=== PATIENT | female | born 1955 | race Caucasian/White ===

== ENCOUNTER 2019-02-12 14:38 | Inpatient (IN) ==
[2019-02-12 15:07] LABS: BASO# 0.02 X1000 (0.0-0.2); BASO% 0.2 % (0.0-0.8); EOS# 0.04 X1000 (0.0-0.7); EOS% 0.4 % (0.0-10.0); HEMOGLOBIN 12.2 g/dL (12.0-16.0); IMM GRAN# 0.02 X1000 (0.0-0.04); IMM GRAN% 0.2 % (0.0-0.5); LYMPH# 0.82 X1000 (1.2-3.4); LYMPH% 7.9 % (20.5-51.1); MCH 28.6 PG (27-31); MCHC 31.3 g/dL (33-37); MCV 91.5 FL (81-99); MONO# 0.21 X1000 (0.11-0.59); MPV 10.6 FL (7.4-10.4); NEUT# 9.22 X1000 (1.4-6.5); NEUT% 89.3 % (42.2-75.2); PLT 242 X1000 (130-400); RBC 4.26 XMIL (4.2-5.4); RDW 12.7 % (11.5-14.5); WBC 10.33 X1000 (4.8-10.8)
[2019-02-12 15:10] LABS: URINE SOURCE CLEAN CATCH
[2019-02-12 15:13] LABS: BILIRUBIN URINE NEGATIVE (NEGATIVE); BLOOD URINE SMALL (NEGATIVE); COLOR YELLOW; GLUCOSE URINE NEGATIVE (NEGATIVE); KETONE URINE NEGATIVE (NEGATIVE); LEUKOCYTES URINE NEGATIVE (NEGATIVE); NITRITE URINE NEGATIVE (NEGATIVE); PH URINE 5.5; PROTEIN URINE NEGATIVE (NEGATIVE); SP GRAVITY URINE 1.011; TURBIDITY URINE CLEAR (CLEAR); UROBILINOGEN URINE NORMAL (NORMAL)
[2019-02-12 15:15] LABS: UR EPITHELIAL CELLS <10 /HPF (<10); URINE BACTERIA NEGATIVE /HPF; URINE RBC <10 /HPF (<10); URINE WBC <10 /HPF (<10)
[2019-02-12 15:23] LABS: URINE SMALL ROUND CELLS TRANS PRESENT
[2019-02-12 15:36] LABS: AGAP 14; ALBUMIN 4.4 g/dL (3.5-5.0); ALKALINE PHOSPHATASE 238 U/L (32-104); AMYLASE 1195 U/L (20-200); BUN 11 mg/dL (8-22); CHLORIDE 103 mmol/L (98-107); COSMO 285; CREATININE 0.7 mg/dL (0.5-0.9); ESTIMATED GFR > 60; GLUCOSE 101 mg/dL (70-104); GOT 390 U/L (10-30); GPT 444 U/L (10-36); POTASSIUM 3.7 mmol/L (3.5-5.1); SODIUM 143 mmol/L (136-145); TCO2 26 mmol/L (25-35); TOTAL BILIRUBIN 1.19 mg/dL (0.20-1.00); TOTAL PROTEIN 6.6 g/dL (6.3-8.3)
[2019-02-12 15:58] LABS: LIPASE > 3000 U/L (13-60)
[2019-02-12] MEDS ORDERED: ZOFRAN IV ONE (16:14)
[2019-02-12] MEDS ORDERED: NS 1,000 ML IV ONE (16:14)
--- NOTE | 2019-02-12 16:18 | PROVIDER DOCUMENTATION ---
HPI-Abdominal Pain/GI Problem - General Chief Complaint: Nausea/Vomiting Stated Complaint: VOMITING Time Seen by Provider: 02/12/19 16:04 Source: patient Allergies/Adverse Reactions: Patient Allergies Allergy/AdvReac Type Severity Reaction Status Date / Time Penicillins AdvReac RASH Verified 02/12/19 14:51 Home Medications: Home Medication List Medication Instructions Recorded Confirmed Last Taken Type Omeprazole 20 mg PO DAILY 02/12/19 02/12/19 02/11/19 History Sertraline [Zoloft] 100 mg PO BID 02/12/19 02/12/19 02/11/19 History Acetaminophen [Tylenol] 650 mg PO Q6H PRN PRN tab 02/15/19 Unknown Rx Ciprofloxacin HCl [Cipro] 500 mg PO BID #14 tab 02/15/19 Unknown Rx Hydrocodone/APAP 10 mg/325 mg 1 ea PO Q4H PRN PRN #15 tab 02/15/19 Unknown Rx [[place]-10] - History of Present Illness-ABD Nature of Presenting Problems: 64 YO F pmh for GERD presents with Nausea x 1 day. Pt states her GERD started acting up on yesterday. She has not vomited yet, but has complaints of generalized abdominal pain. Abdominal Pain Onset Location: reports: generalized abdomen Pain Radiation: reports: no radiation Quality of Pain: reports: aching, pressure Severity in ED: reports: moderate Onset/Duration: reports: 24 hours ago Timing: reports: still present, getting worse Activities at Onset: reports: none Exposure to sick contacts?: No Modifying Factors: improves with: nothing Associated Symptoms: reports: constipation (light colored stools), nausea. denies: diarrhea, fever/chills, rash, syncope, vomiting, weakness Last BM: 24 hours ago Dark Stools Present?: reports: other (light colored) Rectal Bleeding: reports: none Rectal Pain: reports: none Similar Symptoms Previously?: No Recently seen or treated by another doctor?: No Review of Systems - Adult - REVIEW OF SYSTEMS - ADULT Constitutional: denies: chills, fever Eyes: reports: no symptoms reported Ears, Nose, Mouth & Throat: reports: no symptoms reported Cardiovascular: reports: no symptoms reported Respiratory: denies: cough, shortness of breath, wheezing Gastrointestinal: reports: see HPI, constipation, nausea. denies: vomiting Genitourinary: reports: dysuria. denies: flank pain, urinary retention Musculoskeletal: reports: no symptoms reported Integumentary: reports: no symptoms reported Neurological: reports: no symptoms reported Psychiatric: reports: no symptoms reported Endocrine: reports: no symptoms reported Hematologic/Lymphatic: reports: no symptoms reported Past History - Adult - PAST MEDICAL HISTORY-ADULT Review of Records: reports: Medications Reviewed, Social history reviewed & non- contributory. Major Childhood Illnesses: reports: denies history Cardiovascular: reports: denies history Respiratory: reports: denies history Gastrointestinal: reports: GERD Musculoskeletal: reports: denies history Psychiatric: reports: depression Other Conditions: reports: denies history - PRIOR SURGERIES/PROCEDURES Surgical/Procedure History: denies: recent surgery - FAMILY HISTORY Family History: gallbladder disease - SOCIAL HISTORY Smoking: quit greater than 1 year Substance Use: none/never Alcohol Use Frequency: rarely Living Situation: family Physical Exam-General - PHYSICAL EXAM-ADULT Initial Vital Signs Reviewed: Yes - CONSTITUTIONAL General Appearance: appears well, alert, no apparent distress - EYES Eyes: PERRL/EOMI, pink conjunctivae - HEAD, EARS, NOSE, MOUTH & THROAT HENMT: normocephalic/atraumatic, moist mucous membranes - NECK Neck: supple - RESPIRATORY Respiratory: lungs clear, normal breath sounds, no pleuratic chest pain, no respiratory distress, no accessory muscle use - CARDIOVASCULAR Cardiovascular: regular rate, rhythm, no edema - GASTROINTESTINAL (ABDOMEN) Abdominal Exam: guarding, tenderness. negative: distended, Lezama's sign, Rovsing's sign - MUSCULOSKELETAL Back Exam: normal inspection, no CVA tenderness, no vertebral tenderness Extremity: normal range of motion, non-tender, normal gait, normal inspection, no pedal edema - SKIN Integumentary: normal color, normal turgor, warm/dry - NEUROLOGIC Neurologic: grossly normal - PSYCHIATRIC Psych/Mental Status: normal mood/affect, oriented x 3 Progress - PLAN OF CARE/RESULTS Progress/Plan/Lab Results: Vital Signs - 8 hr 02/12/19 14:48 Temperature 98.1 F Pulse Rate 80 Respiratory Rate 16 Blood Pressure 107/64 O2 Sat by Pulse Oximetry 97 Laboratory Results - last 24 hr 02/12/19 02/12/19 02/12/19 14:50 14:55 14:55 WBC 10.33 RBC 4.26 Hgb 12.2 Hct 39.0 MCV 91.5 MCH 28.6 MCHC 31.3 L RDW Std Deviation 12.7 Plt Count 242 MPV 10.6 H Immature Gran % (Auto) 0.2 Neut % (Auto) 89.3 H Lymph % (Auto) 7.9 L [place] % (Auto) 2.0 Eos % (Auto) 0.4 Baso % (Auto) 0.2 Immature Gran # (Auto) 0.02 Neut # (Auto) 9.22 H Lymph # (Auto) 0.82 L [place] # (Auto) 0.21 Eos # (Auto) 0.04 Baso # (Auto) 0.02 Sodium 143 Potassium 3.7 Chloride 103 Carbon Dioxide 26 Anion Gap 14 BUN 11 Creatinine 0.7 Estimated GFR/1.73 m2 > 60 BUN/Creatinine Ratio 16 Glucose 101 Calculated Osmolality 285 Calcium 9.0 Total Bilirubin 1.19 H AST 390 H ALT 444 H Alkaline Phosphatase 238 H Total Protein 6.6 Albumin 4.4 Globulin 2.2 Albumin/Globulin Ratio 2.0 Amylase 1195 H Lipase > 3000 H Urine Source CLEAN CATCH Urine Color YELLOW Urine Turbidity CLEAR Urine pH 5.5 Ur Specific [place] 1.011 Urine Protein NEGATIVE Ur Glucose (Stick) NEGATIVE Ur Ketones (Stick) NEGATIVE Urine Blood SMALL A Urine Nitrite NEGATIVE Urine Bilirubin NEGATIVE Urobilinogen Dipstick NORMAL Urine Leukocytes NEGATIVE Urine WBC (Auto) <10 Urine RBC (Auto) <10 U Epithel Cells (Auto) <10 Urine Bacteria (Auto) NEGATIVE Urine Crystals Not Reportable Small Round Cells TRANS PRESENT Urine Casts Not Reportable Urine Yeast-like Cells Not Reportable Orders Category Date Time Status Saline Loc DIRECTED Care 02/12/19 14:51 Active NPO Diet 02/12/19 14:[address] ABDOMEN/PELVIS W/O CONTRAST [CT] Stat Exams 02/12/19 16:06 Ordered AMYLASE [CHEM] Stat Lab 02/12/19 14:55 Completed CBC WITH ELECTRONIC DIFF [HEME] Stat Lab 02/12/19 14:55 Completed COMPREHENSIVE METABOLIC PANEL [CHEM] Stat Lab 02/12/19 14:55 Completed LIPASE [CHEM] Stat Lab 02/12/19 14:55 Completed URINALYSIS W/POSS RFLX CULT [URINALYSIS] Stat Lab 02/12/19 14:50 Completed URINE MANUAL MICROSCOPIC [URINALYSIS] Stat Lab 02/12/19 14:50 Completed Result Diagrams: 02/15/19 04:58 02/15/19 09:05 - REASSESSMENT Reassessment #1 Status: other (labs reviewed showing elevated LFTs and lipase. Will send for CT.) - CT/MRI 1 CT Study: Abdomen, Pelvis Impression: See EMR Report (CT ABDOMEN/PELVIS W/O CONTRAST - 02/12/2019 INDICATION: nausea and vomiting COMPARISON: None FINDINGS: The lung bases are clear and the heart size is normal. There are several gallstones in the gallbladder. There is some gallbladder wall thickening. There is some indistinct edema surrounding the pancreas and gallbladder. No biliary dilation. The pancreatic head mass cannot be excluded. There is severe constipation. No bowel obstruction or inflammation. No drainable fluid collections. IMPRESSION: 1. Gallstones in the gallbladder. Gallbladder wall thickening. This may indicate cholecystitis. 2. Cannot exclude pancreatic head mass. There is inflammation about the pancreas is well which may relate to pancreatitis. Recommend a CT abdomen pelvis with oral and intravenous contrast. 3. Severe diffuse const ipation. This exam was performed using automated exposure control, adjustment of mA or kV according to patient size, and/or use of iterative reconstruction technique) - CONSULTS/PCP/HOSPITALIST Notification #1 *Consult/PCP/Hospitalist*: Dr. Mays Time Discussed: 17:45 (states to call surgery) Consult Disposition: Will see in ED, Admit #2 Consult: Dr. Gaffney- General Surgery Time Discussed: 17:55 Consult Disposition: other (will see in the morning) Departure - Departure Date of Disposition Decision: 02/12/19 Time of Disposition Decision: 17:20 DIAGNOSIS: Choledocholithiasis, Elevated lipase, Transaminitis Disposition: ADMITTED INPATIENT 09 Certified Medical Emergency: Emergent Condition: Stable - Critical Care Note This patient required my direct & personal management of CC.: No Attestation - Physician/ ANETTE Attestation Patient care was provided by Advanced Practice Provider:: No The physician spent face to face time with patient:: Yes Advanced Practice Provider documentation review:: Supervising physician onsite and consulted in the evaluation and care of this patient. The physician did have a face to face encounter with the patient.
--- NOTE | 2019-02-12 16:58 | Diag Imaging Result Doc PS360 ---
CT ABDOMEN/PELVIS W/O CONTRAST - 02/12/2019 INDICATION: nausea and vomiting COMPARISON: None FINDINGS: The lung bases are clear and the heart size is normal. There are several gallstones in the gallbladder. There is some gallbladder wall thickening. There is some indistinct edema surrounding the pancreas and gallbladder. No biliary dilation. The pancreatic head mass cannot be excluded. There is severe constipation. No bowel obstruction or inflammation. No drainable fluid collections. IMPRESSION: 1. Gallstones in the gallbladder. Gallbladder wall thickening. This may indicate cholecystitis. 2. Cannot exclude pancreatic head mass. There is inflammation about the pancreas is well which may relate to pancreatitis. Recommend a CT abdomen pelvis with oral and intravenous contrast. 3. Severe diffuse constipation. This exam was performed using automated exposure control, adjustment of mA or kV according to patient size, and/or use of iterative reconstruction technique Electronically signed by Boris Parekh 02/12/2019 4:55 PM
[2019-02-12] MEDS ORDERED: FLAGYL 500 MG/NS 500 MG/100 ML IVPB IV ONE (17:21)
[2019-02-12] MEDS ORDERED: CIPRO 400 MG/D5W 400 MG/200 ML IVPB IV ONE (18:00)
[2019-02-12] MEDS ORDERED: NS 1,000 ML IV SCH (18:00)
[2019-02-12] MEDS ORDERED: SODIUM CHLORIDE 0.9% INJ SCH ×2 (18:30→20:45)
[2019-02-12] MEDS ORDERED: PROTONIX IV SCH (18:30)
--- NOTE | 2019-02-12 19:08 | HISTORY AND PHYSICAL ---
HISTORY OF PRESENT ILLNESS: Ms. Manley who is a 64-year-old white female is admitted with vomiting, which started this morning, had epigastric pain. Ms. Manley is a known case of GERD syndrome. She initially thought it was GERD; however, the vomiting continued. Hence she came to the emergency room where she was found to have elevated liver enzymes as well as mild elevation in the lipase and amylase, and a CT scan also revealed gallbladder stones. She never had a history of gallbladder problems before. She had EGD performed by Dr. Mahoney about 1 year ago, and she was told to have a bad GERD problem. She is a patient of Dr. Byers for many years. She is taking Zoloft 100 mg b.i.d. She is also taking Prilosec 20 mg daily and has been taking psyllium seeds. She did not have any major surgery except for sinus surgery and tonsillectomy. Recently she was trying to use some Monistat and she thought that the speculum for Monistat injured her in the vagina and had some vaginal bleeding, which is clearing up. SOCIAL HISTORY: She is a nonsmoker, does not drink. ALLERGIES: She is allergic to penicillin. REVIEW OF SYSTEMS: Other than vomiting and abdominal pain, she has some constipation. Otherwise, it is noncontributory. She is very weak because of recurrent vomiting. PHYSICAL EXAMINATION: VITAL SIGNS: Temperature normal, pulse 80 per minute, respiratory rate 16 per minute, blood pressure 107/64. HEAD: Normocephalic. EYES: Pupils PERRLA. Fundus exam not done. NECK: Supple. JVP normal. ENT EXAMINATION: Unremarkable. There is no evidence of lymphadenopathy, thyroid enlargement, pedal edema, calf tenderness, anemia, cyanosis or clubbing. Pedal pulses well felt. BREASTS: Exam not done. CHEST: Normal on inspection. LUNGS: Clear on auscultation. PMI in the normal position. HEART: Sounds normal. No murmur, gallop or rub noted. ABDOMEN: Nondistended. There is definite tenderness in epigastrium and right upper quadrant. No guarding, rigidity, free fluid, masses, or organomegaly. Bowel sounds normal. RECTAL: Deferred. CENTRAL NERVOUS SYSTEM: Higher functions normal. Cranial nerves normal. Motor and sensory system examination unremarkable. Deep tendon reflexes normal. Plantars downgoing. Skull and spine examination normal. No cerebellar signs or signs of meningeal irritation of locomotor system. SKIN EXAMINATION: Unremarkable except for minimal dehydration. CLINICAL IMPRESSION: Acute abdominal pain, recurrent vomiting. LABORATORY DATA: Shows white count of 10.33 and her liver enzymes including alkaline phosphorus, AST and ALT are very elevated. Bilirubin is 1.90. Lipase is over more than 3000. Amylase was 1195, and urinalysis shows a small amount of blood. Otherwise, it is negative. IMAGING: CT scan of the abdomen reveals presence of gallstones in the gallbladder, and there is thickening of the gallbladder wall indicating cholecystitis. Pancreatic mass could not be excluded, and there was inflammation in the pancreas. IMPRESSION: Acute pancreatitis, recurrent vomiting, elevated liver enzymes probably biliary stasis on account of cholelithiasis. We will get surgical consultation. Start IV antibiotics and symptomatic treatment. cc: Wing Mays MD
[2019-02-12] MEDS: PROTONIX IV SCH (21:46)
[2019-02-13] MEDS: ZOFRAN IV PRN (01:00)
[2019-02-13] MEDS ORDERED: ZOFRAN IV ONE (02:15)
[2019-02-13] MEDS ORDERED: MORPHINE IV PRN (02:16)
[2019-02-13] MEDS: TYLENOL PO PRN ×3 (03:15→12:58)
[2019-02-13] MEDS: CIPRO 400 MG/D5W 400 MG/200 ML IVPB IV SCH ×2 (06:10→18:07)
[2019-02-13 06:58] LABS: AGAP 11; AMYLASE 757 U/L (20-200); BUN 10 mg/dL (8-22); CALCIUM 8.5 mg/dL (8.8-10.2); CHLORIDE 100 mmol/L (98-107); COSMO 269; CREATININE 0.7 mg/dL (0.5-0.9); ESTIMATED GFR > 60; GLUCOSE 125 mg/dL (70-104); LIPASE 847 U/L (13-60); POTASSIUM 3.4 mmol/L (3.5-5.1); SODIUM 134 mmol/L (136-145); TCO2 23 mmol/L (25-35)
--- NOTE | 2019-02-13 10:43 | GENERAL SURGERY CONSULTATION ---
DATE: 02/13/2019 SUBJECTIVE: Ms. Manley is 64 years old and had a couple of days of nausea, vomiting and epigastric pain. She felt it was just her reflux but upon admission she was found to have elevated liver enzymes and elevated amylase and lipase. CT scan shows multiple gallstones. Since her admission, she is improved but still mildly tender. She has been followed by Dr. Mahoney before for her gastroesophageal reflux. She denies any other significant medical problems. PAST SURGICAL HISTORY: Previous surgery includes tonsillectomy and sinus surgery. MEDICATIONS: Her medications at home include omeprazole 20 mg daily, and Zoloft 100 mg b.i.d. ALLERGIES: She has an allergy to penicillin. SOCIAL HISTORY: She is . She is a nonsmoker. She denies alcohol or illicit drug use. FAMILY HISTORY: Not known. REVIEW OF SYSTEMS: Pertinent for constipation, nausea and vomiting as noted above and gastroesophageal reflux but otherwise negative in all other 10 subsystems. PHYSICAL EXAMINATION: Vitals: T-max 99 degrees, heart rate 59, blood pressure 98/60, respiratory rate 16. Neck: No cervical adenopathy. Lungs: Bilateral breath sounds. Heart: Regular rate and rhythm. GI: She is mildly tender in the epigastrium. Extremities: No peripheral edema. Neuro: She is awake and alert. DATA: CT scan review shows gallstones in the gallbladder with some gallbladder wall thickening. She does have evidence for constipation. Her amylase has fallen from 1195 to 757, her lipase from greater than 3000 to 847. LFTs yesterday were all elevated. ASSESSMENT: Gallstone pancreatitis. PLAN: Continue to hydrate her and allow her enzymes to improve. Ultimately she will come to cholecystectomy. I have discussed that with her and her , the benefits and risks of surgery. They understand and agree to proceed whenever the timing is appropriate. cc: MD Wing Cates MD
[2019-02-13] MEDS: NS 1,000 ML IV SCH (10:47)
--- NOTE | 2019-02-13 11:55 | PROGRESS NOTE ---
DATE: 02/13/2019 SUBJECTIVE: The patient says she is feeling better. She is not quite as nauseated. She has been having some reflux symptoms even though she was taking omeprazole at home. This might have actually been bile rather than gastric acid. OBJECTIVE: Vital signs: Blood pressure is 98/60, respirations 18, pulse 59, temperature 98 degrees. HEENT: She is normocephalic. EOMS intact. PERRLA. Throat clear. Lungs: Clear to auscultation and percussion without rhonchi, rales, or wheezes. Heart: Regular rate and rhythm without murmurs, gallops, or friction rubs. Abdomen: Soft with some right upper quadrant tenderness, more so than even over pancreatitis. Neurological: Intact grossly. LABORATORY [place]: [place] [address], hemoglobin 12.2, hematocrit 39.0, that was yesterday. Today her electrolytes were normal except for potassium slightly low at 3.4 which I will supplement. Her scans show gallstones and pancreatitis. Her serum amylase has come down from 1195 to 757, her lipase greater than 3000 down to 847. ASSESSMENT: 1. Pancreatitis. 2. Probable gallstone pancreatitis. PLAN: Supplement potassium. Have had Surgery already look at her. When her pancreatitis cools down, sometime in the future she probably needs her gallbladder removed. cc: MD Wing Chambers Jr, MD
[2019-02-13] MEDS: POTASSIUM CHLORIDE 20 MEQ/SWI 20 MEQ/100 ML IVPB IV SCH ×2 (12:09→17:39)
[2019-02-13] MEDS: MILK OF MAGNESIA PO SCH (20:08)
[2019-02-13] MEDS: PROTONIX IV SCH (20:09)
[2019-02-13] MEDS: POTASSIUM CHLORIDE 20% LIQUID PO SCH (20:09)
[2019-02-14] MEDS: NS 1,000 ML IV SCH ×2 (01:13→18:43)
[2019-02-14 05:31] LABS: AGAP 10; ALB/GLOB RATIO 1.3; ALBUMIN 3.2 g/dL (3.5-5.0); ALKALINE PHOSPHATASE 192 U/L (32-104); BUN 7 mg/dL (8-22); CALCIUM 8.1 mg/dL (8.8-10.2); CHLORIDE 107 mmol/L (98-107); COSMO 278; CREATININE 0.5 mg/dL (0.5-0.9); ESTIMATED GFR > 60; GLUCOSE 108 mg/dL (70-104); GOT 86 U/L (10-30); GPT 222 U/L (10-36); POTASSIUM 3.8 mmol/L (3.5-5.1); SODIUM 140 mmol/L (136-145); TCO2 23 mmol/L (25-35); TOTAL BILIRUBIN 0.66 mg/dL (0.20-1.00); TOTAL PROTEIN 5.6 g/dL (6.3-8.3)
[2019-02-14 05:33] LABS: BASO# 0.01 X1000 (0.0-0.2); BASO% 0.2 % (0.0-0.8); EOS# 0.09 X1000 (0.0-0.7); EOS% 2.1 % (0.0-10.0); HEMATOCRIT 32.3 % (37.0-47.0); HEMOGLOBIN 10.1 g/dL (12.0-16.0); LYMPH# 0.79 X1000 (1.2-3.4); MCH 28.9 PG (27-31); MCHC 31.3 g/dL (33-37); MCV 92.3 FL (81-99); MONO# 0.42 X1000 (0.11-0.59); MONO% 9.6 % (1.7-9.3); MPV 11.2 FL (7.4-10.4); NEUT# 3.08 X1000 (1.4-6.5); NEUT% 70.1 % (42.2-75.2); PLT 172 X1000 (130-400); RDW 12.9 % (11.5-14.5); WBC 4.39 X1000 (4.8-10.8)
[2019-02-14] MEDS: CIPRO 400 MG/D5W 400 MG/200 ML IVPB IV SCH ×2 (06:17→18:43)
--- NOTE | 2019-02-14 07:22 | GENERAL SURGERY PROGRESS NOTE ---
DATE: 02/14/2019 Ms. Manley is feeling satisfactory. Her LFTs have all decreased again. The plan will be to proceed with a laparoscopic cholecystectomy today with operative cholangiogram. Discussed this with her and her . They understand and agree to proceed. cc: MD Wing Cates MD
--- NOTE | 2019-02-14 08:27 | PROGRESS NOTE ---
DATE: 02/14/2019 SUBJECTIVE: The patient is feeling better. Nausea has subsided. OBJECTIVE: Vital Signs: Afebrile x24 hours. Just prior to 24 hours ago, she was 101. Vital signs are stable. CV: RRR. No murmur. Lungs: CTA. Abdomen: Mild right-sided abdominal tenderness. No mass or organomegaly. Extremities: No edema. Neurologic: Nonfocal. Cranial nerves are intact. LABORATORY DATA: White count down from 10 to 4.3, hemoglobin 10.1, platelets 172,000. CMP shows potassium 3.8, CO2 of 23, creatinine 0.5, total bilirubin 0.66, AST 86, ALT 222, alkaline phosphatase down to 192. ASSESSMENT: 1. Gallbladder pancreatitis. 2. Pronounced gallstones. PLAN: I spoke with Dr. Gaffney, and he plans on cholecystectomy today. She remains on IV Cipro, and is on IV PPI and IV fluids. cc: MD Wing Gunter MD
[2019-02-14] MEDS: MILK OF MAGNESIA PO SCH ×2 (08:45→23:02)
[2019-02-14] MEDS: POTASSIUM CHLORIDE 20% LIQUID PO SCH ×2 (08:45→23:01)
[2019-02-14] MEDS: ZOFRAN IV PRN (08:56)
[2019-02-14] MEDS ORDERED: ROBINUL ONE ×2 (14:48→16:48)
[2019-02-14] MEDS ORDERED: XYLOCAINE-MPF 2% ONE (14:48)
[2019-02-14] MEDS ORDERED: QUELICIN (DOSE) ONE (14:48)
[2019-02-14] MEDS ORDERED: DIPRIVAN 1% ONE (14:49)
[2019-02-14] MEDS ORDERED: SENSORCAINE-MPF 0.5%/EPI 1:200,000 ONE (16:09)
[2019-02-14] MEDS ORDERED: SODIUM CHLORIDE 0.9% ONE (16:09)
[2019-02-14] MEDS ORDERED: LR 1,000 ML ONE (16:10)
[2019-02-14] MEDS ORDERED: FENTANYL ONE (16:21)
[2019-02-14] MEDS ORDERED: ZEMURON ONE (16:24)
[2019-02-14] MEDS ORDERED: TORADOL ONE (16:25)
[2019-02-14] MEDS ORDERED: ZOFRAN ONE (16:25)
[2019-02-14] MEDS ORDERED: DECADRON ONE (16:25)
[2019-02-14] MEDS ORDERED: NEOSTIGMINE ONE (16:48)
--- NOTE | 2019-02-14 17:27 | Diag Imaging Result Doc PS360 ---
EXAM: OPERATIVE CHOLANGIOGRAM HISTORY: choledocholithiasis TECHNIQUE: Three views COMPARISON: None. FINDINGS: Contrast fills the common bile duct and has emptied into the duodenum. No stone or stricture. IMPRESSION: No stones identified within the common bile duct. Electronically signed by Kings Lindsay 02/14/2019 5:25 PM
[2019-02-14] MEDS ORDERED: NORCO-10 PO PRN (18:24)
--- NOTE | 2019-02-14 20:01 | OPERATIVE NOTE ---
PROCEDURE DATE: 02/14/2019 PROCEDURE PERFORMED: Laparoscopic cholecystectomy with operative cholangiogram. SURGEON: Richie Gaffney MD. TACTICAL/MOBILE WATCH OFFICER: Jenn. PREOPERATIVE DIAGNOSES: Gallstone pancreatitis. POSTOPERATIVE DIAGNOSIS: Gallstone pancreatitis. FINDINGS: The cholangiogram revealed no intraluminal filling defects. The common hepatic duct did not visualize well. There was free flow in the duodenum. The gallbladder was very enlarged and swollen. DESCRIPTION OF PROCEDURE: Satisfactory general endotracheal anesthesia was induced. The abdomen was prepped and draped in a sterile fashion. We anesthetized the skin below the umbilicus, incised the skin, and carried our incision down the fascia. We scored the fascia, introduced an 11 trocar Optiview technique. We insufflated through this trocar. Under direct visualization, used a 5 trocar midclavicular line, 5 trocar in the in the anterior axillary line, and an 11 mm trocar in the midepigastrium. We grasped the fundus of the gallbladder, reflected it cephalad. It was very enlarged and floppy. We had to dissect the infundibulum the adhesions off the fundus and infundibulum all the way down to the triangle of Calot. We dissected the triangle of [place]ot and obtained a critical view. We clipped the cystic artery proximally x2, distally x1, and divided it. The cystic duct was clipped near the junction of the gallbladder, incised the cystic duct, and introduced a Obed catheter. We shot the cholangiogram. The findings above were noted. We removed the cholangiogram catheter, clipped the cystic duct on the opposite side of the cystic ductotomy x2 and then transected the cystic duct. We then used the cautery spatula to dissect the gallbladder away from the liver. After complete separation of gallbladder from liver, we changed videolaparoscope to the mid epigastric trocar. We then brought the gallbladder down to the umbilical trocar and delivered it out of the abdominal cavity. We had to enlarge the fascial incision somewhat to remove it completely. We then looked back and hemostasis was satisfactory. There was some adhesions to the right mid abdomen that we incised carefully. We then desufflated and removed our trocars. We closed the fascia at the umbilicus with 2-0 Polysorb fascial stitches. We also placed a 2-0 Polysorb fascial stitch in the epigastrium. We then closed the skin at each incision with 4-0 Polysorb subcuticular stitches. Sterile OpSites were applied. She tolerated it well and was sent to the recovery room in satisfactory condition. cc: MD Wing Cates MD Stephen Harbin
[2019-02-14] MEDS: PROTONIX IV SCH (23:02)
[2019-02-15 05:33] LABS: HEMATOCRIT 33.4 % (37.0-47.0); HEMOGLOBIN 10.1 g/dL (12.0-16.0); LYMPH# 0.53 X1000 (1.2-3.4); LYMPH% 8.1 % (20.5-51.1); MCH 28.4 PG (27-31); MCHC 30.2 g/dL (33-37); MCV 93.8 FL (81-99); MONO# 0.48 X1000 (0.11-0.59); MONO% 7.3 % (1.7-9.3); MPV 11.2 FL (7.4-10.4); NEUT# 5.55 X1000 (1.4-6.5); NEUT% 84.6 % (42.2-75.2); PLT 204 X1000 (130-400); RBC 3.56 XMIL (4.2-5.4); WBC 6.56 X1000 (4.8-10.8)
[2019-02-15 05:55] LABS: AMYLASE 45 U/L (20-200); LIPASE 41 U/L (13-60)
[2019-02-15] MEDS: CIPRO 400 MG/D5W 400 MG/200 ML IVPB IV SCH (06:28)
[2019-02-15 09:58] LABS: AGAP 11; ALB/GLOB RATIO 1.9; ALBUMIN 3.7 g/dL (3.5-5.0); ALKALINE PHOSPHATASE 185 U/L (32-104); BUN 7 mg/dL (8-22); CALCIUM 8.7 mg/dL (8.8-10.2); CHLORIDE 107 mmol/L (98-107); COSMO 284; CREATININE 0.5 mg/dL (0.5-0.9); ESTIMATED GFR > 60; GLUCOSE 151 mg/dL (70-104); GOT 44 U/L (10-30); GPT 167 U/L (10-36); POTASSIUM 4.4 mmol/L (3.5-5.1); SODIUM 142 mmol/L (136-145); TCO2 24 mmol/L (25-35); TOTAL BILIRUBIN 0.39 mg/dL (0.20-1.00); TOTAL PROTEIN 5.7 g/dL (6.3-8.3)
[2019-02-15] MEDS: MILK OF MAGNESIA PO SCH (10:11)
[2019-02-15] MEDS: POTASSIUM CHLORIDE 20% LIQUID PO SCH (10:11)
[2019-02-15 11:42] VITALS: BP 148/75
--- NOTE | 2019-02-17 21:35 | DISCHARGE SUMMARY ---
ADMISSION DATE: 02/12/2019 DISCHARGE DATE: 02/15/2019 DIAGNOSES: 1. Gallstone pancreatitis status post laparoscopic cholecystectomy with intraoperative cholangiogram which was negative. 2. Depression . 3. Gastroesophageal reflux disease. 4. Chronic constipation. CONSULTANTS: Dr. Trevon Gaffney, general surgery. PROCEDURES: 1. CT scan of abdomen and pelvis revealed gallstones in the gallbladder, gallbladder wall thickening, possibly indicating cholecystitis cannot exclude pancreatic head mass, inflammation at the pancreas is noted consistent with pancreatitis. Severe diffuse constipation . 2. Laparoscopic cholecystectomy with intraoperative cholangiogram which was negative . REASON FOR ADMISSION AND HOSPITAL COURSE: The patient is a 64-year-old white female followed my medical practice came in with 1-day history of vomiting. She was noted to have elevated LFTs and gallstones with inflammation at the pancreas. Amylase, lipase were elevated. She was admitted, given IV fluids and started on IV antibiotics and Dr. Gaffney was consulted. He saw the patient and with the antibiotics and IV fluids her LFTs, amylase, lipase, defervesced and the patient was able to undergo laparoscopic cholecystectomy with intraoperative cholangiogram. The IOC was negative, she did well postoperatively and was felt she could be discharged home. Blood cultures x2 were negative from admission. White count was 10 on admission, 6 at discharge, hemoglobin 10.1 at discharge. Creatinine was normal at 0.5 and 0.7. Electrolytes normal, amylase and lipase had normalized by discharge. Patient was doing well was felt she could be followed up in [address] Gaffney. DISCHARGE MEDICATIONS: Omeprazole 20 mg p.o. daily, Zoloft 100 mg p.o. b.i.d., Cipro 500 mg p.o. b.i.d. to complete 1 more week, [place] 10 one p.o. q.4 hours p.r.n. pain #15 no refills, Tylenol p.r.n. She will follow with me as needed. Notably on exam before discharge she was in sinus rhythm regular rate and rhythm. Lungs: Clear. Extremities: Without calf tenderness, cords, edema. Neuro: Nonfocal. cc: MD Wing Gunter MD Dr. Walker
== END 2019-02-15 14:30 | disposition home or self-care (01) | DRG 417 ==
LOC: ED 14:38 → 1N 18:33
PROVIDERS: ADMIT Internal Medicine; ATTEND Family Medicine